=== PATIENT | female | born 2000 | race Caucasian/White ===

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

== ENCOUNTER 2021-05-21 10:04 | Emergency (ER) | payer OTHER, SELFPAY ==
--- OUTSIDE RECORDS SUMMARY | 2021-05-21 10:07 | XMS REPORT | Continuity of Care Document ---
:[address] [facility] t Address [address] [place] [address] Dr. Mendo[address] [place] [address] Care Team Providers Name Role Phone Unavailable Unavailable Unavailable Problems This patient has no known problems. Allergies, Adverse Reactions, Alerts This patient has no known allergies or adverse reactions. Medications This patient has no known medications. Procedures This patient has no known procedures. Results This patient has no known results.
[2021-05-21 11:40] LABS: Absolute Lymphocytes (CBC) 2.2 K/uL (0.7-4.9); Lymphocytes % 23.6 % (15.3-44.8); MPV 8.8 fL (7.6-11.3); RBC Red Blood Cell Count 5.02 M/uL (3.86-4.86)
[2021-05-21 11:55] LABS: Urine Blood Trace-intact (Negative); Urine Glucose Negative (Negative); Urine Protein Negative (Negative); Urine Specific Gravity 1.015 (1.005-1.030); Urine pH 6.5 (5.0-7.0)
[2021-05-21 12:04] LABS: BUN Blood Urea Nitrogen 3 mg/dL (7-18); Bicarbonate 26 mmol/L (21-32); Glucose Level 99 mg/dL (74-106); HCG, Quantitative 6123 mIU/mL (1-3); Potassium 4.2 mmol/L (3.5-5.1); Sodium Level 138 mmol/L (136-145)
[2021-05-21 12:46] LABS: Urine Specific Gravity/Preg 1.015 (1.005-1.030)
--- NOTE | 2021-05-21 13:29 | RAD REPORT ---
EXAM DESCRIPTION: US - Transvaginal OB - 05/21/2021 1:10 pm CLINICAL HISTORY: Abd pain;Vaginal bleeding COMPARISON: No comparisons FINDINGS: Gestational sac identified with mean sac diameter of 10 millimeters. No pole or hear t tones identified. Small volume of pelvic free fluid. Ovaries both demonstrate vascular flow. The ri ght ovary has a volume of 8.6 cc. The left ovary is volume of 8.9 cc. IMPRESSION: Gestational sac identified without pole with ultrasound age of 5 weeks 4 days and estimated delivery of 01/17/2022. Lack of pole/heart tones likely due to early dates. Follow-up ultrasound could confirm.
--- NOTE | 2021-05-21 13:39 | EDPHYS ---
Physician Documentation [facility] Name: Alia Ocasio Age: 21 yrs Sex: Female : 2000 Arrival Date: 05/21/2021 Time: 10:07 Bed Treatment Private MD: ED Physician Kwame Gomez HPI: 05/21 13:22 This 21 yrs old Female presents to ER via Wheelchair with complaints of Vaginal jr8 Bleeding, + Preg <12wks. 13:22 The patient presents to the emergency department with abdominal pain, of the lower jr8 abdomen, that started yesterday, described as crampy, vaginal bleeding, described as spotting. The estimated gestational age is 5 weeks. course: care: at a clinic, Leakage of Fluid: none appreciated, Ultrasound: the patient has not had an ultrasound, Risk/complications: no obvious risks or complications are appreciated. Associated signs and symptoms: The patient has no apparent associated signs or symptoms. The patient has not experienced similar symptoms in the past. The patient has not recently seen a physician. Patient stated that she lifted water bottle case yesterday. Since then has had lower abdominal cramping. Today had spotting. No formal US completed yet. 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 Flu vaccine is not up to date. - Social history:: Smoking status: Patient/guardian denies using tobacco, Stopped _ months ago .5 Smoking status: Reported history of juuling and/or vaping. ROS: 13:22 Eyes: Negative for injury, pain, redness, and discharge, ENT: Negative for injury, jr8 pain, and discharge, Neck: Negative for injury, pain, and swelling, Cardiovascular: Negative for chest pain, palpitations, and edema, Respiratory: Negative for shortness of breath, cough, wheezing, and pleuritic chest pain, Back: Negative for injury and pain, MS/Extremity: Negative for injury and deformity, Skin: Negative for injury, rash, and discoloration, Neuro: Negative for headache, weakness, numbness, tingling, and seizure. 13:22 Abdomen/GI: Positive for abdominal cramps, Negative for nausea, vomiting, and diarrhea. 13:22 : Positive for vaginal bleeding. Exam: 13:22 Constitutional: This is a well developed, well nourished patient who is awake, alert, jr8 and in no acute distress. Cardiovascular: Regular rate and rhythm with a normal S1 and S2. No gallops, murmurs, or rubs. Normal PMI, no JVD. No pulse deficits. Respiratory: Lungs have equal breath sounds bilaterally, clear to auscultation and percussion. No rales, rhonchi or wheezes noted. No increased work of breathing, no retractions or nasal flaring. Abdomen/GI: Soft, non-tender, with normal bowel sounds. No distension or tympany. No guarding or rebound. No evidence of tenderness throughout. Back: No spinal tenderness. No costovertebral tenderness. Full range of motion. Skin: Warm, dry with normal turgor. Normal color with no rashes, no lesions, and no evidence of cellulitis. MS/ Extremity: Pulses equal, no cyanosis. Neurovascular intact. Full, normal range of motion. Neuro: Awake and alert, GCS 15, oriented to person, place, time, and situation. Cranial nerves II-XII grossly intact. Motor strength 5/5 in all extremities. Sensory grossly intact. Vital Signs: 10:32 BP 123 / 85; Pulse 72; Resp 17; Temp 98.1(TE); Pulse Ox 98% on R/A; Weight 91.63 kg; tw2 Height 5 ft. 8 in. (172.72 cm); Pain 6/10; 10:47 BP 131 / 72 LA Sitting (auto/reg); Pulse 64; Resp 14 S; Temp 98.0(O); Pulse Ox 100% on mb4 R/A; 10:32 Body Mass Index 30.71 (91.63 kg, 172.72 cm) tw2 MDM: 10:44 Patient medically screened. jr8 11:16 Data reviewed: vital signs, nurses notes, lab test result(s), radiologic studies, jr8 ultrasound. 13:37 Data interpreted: Pulse oximetry: on room air is 100 %. Interpretation: normal. jr8 Counseling: I had a detailed discussion with the patient and/or guardian regarding: the historical points, exam findings, and any diagnostic results supporting the discharge/admit diagnosis, lab results, radiology results, the need for outpatient follow up, an OB/Gyne specialist, to return to the emergency department if symptoms worsen or persist or if there are any questions or concerns that arise at home. ED course: Discussed with patient early IUP vs threatened miscarry. Needs to have f/u US and HCG. If she were to have worsening of pain or bleeding to come back for further evaluation . 05/21 10:44 Order name: Abo/rh Typing; Complete Time: 12:16 jr8 05/21 10:44 Order name: Basic Metabolic Panel; Complete Time: 12:16 8 05/21 10:44 Order name: CBC with Diff; Complete Time: 11:47 8 05/21 10:44 Order name: Quantitative Hcg; Complete Time: 12:16 8 05/21 11:55 Order name: Urine Dipstick-Ancillary EDPA 05/21 12:15 Order name: Urine --Ancillary (enter results) eb 05/21 10:44 Order name: IV Saline Lock; Complete Time: 11:10 jr8 05/21 10:44 Order name: Labs collected and sent; Complete Time: 11:10 8 05/21 10:44 Order name: NPO; Complete Time: 10:48 8 05/21 10:44 Order name: Urine Dipstick-Ancillary (obtain specimen); Complete Time: 12:13 jr8 05/21 10:44 Order name: Urine Test (obtain specimen); Complete Time: 12:13 8 05/21 11:14 Order name: Labs - recollect needed: recollect T\T\S/ wrong pen used/ smeared label; eb Complete Time: 11:45 05/21 12:16 Order name: Urine --Ancillary; Complete Time: 12:49 EDPA 05/21 12:16 Order name: US Transvaginal Ob; Complete Time: 13:37 jr8 Administered Medications: No medications were administered Disposition Summary: 05/21/21 13:39 Discharge Ordered Location: Home jr8 Problem: new jr8 Symptoms: are unchanged jr8 Condition: Stable jr8 Diagnosis - Threatened jr8 Followup: jr8 - With: Private Physician - When: 2 - 3 days - Reason: Recheck today's complaints, Continuance of care, Re-evaluation by your physician Discharge Instructions: - Discharge Summary Sheet jr8 - Threatened Miscarriage jr8 - Vaginal Bleeding During , First Trimester jr8 Forms: - Medication Reconciliation Form jr8 - Thank You Letter jr8 - Antibiotic Education jr8 - Prescription Opioid Use jr8 Addendum: 05/23/2021 16:21 Co-signature as Attending Physician, Kwame Gomez MD I agree with the assessment and s p3 plan of care. Signatures: Dispatcher [employer] EDIgnacio Hughes PA PA jr8 Mel Morse RN RN tw2 Sandy Vizcaino Setul, MD MD sp3
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
[2021-05-21 14:16] VITALS: BP 131/72; TEMP 98; O2SAT 100
== END 2021-05-21 14:08 | disposition home or self-care (01) ==
LOC: ER 10:04
DX: O20.0 Threatened abortion (principal); Z3A.01 Less than 8 weeks gestation of pregnancy
CPT/HCPCS: 36415; 76817; 80048; 81003; 81025; 84702; 85025; 86900; 86901; 99284

== ENCOUNTER 2021-06-06 12:04 | Emergency (ER) | payer OTHER ==
--- OUTSIDE RECORDS SUMMARY | 2021-06-06 12:06 | XMS REPORT | Continuity of Care Document ---
:2000 Author Organization [facility] t Address [address] [place] [address] Care Team Providers Name Role Phone Pcp, Does Not Have A Primary Care Physician Delmis Dial Attending Clinician Payers Payer Name Policy Type Policy Number Effective Date Expiration Date S ource Problems Condition Condition Condition Status Onset Resolution Last Treating Co mments Source Name Details Category Date Date Treatment Clinician Date Supervisio Supervisio Disease Active U nivers n of high n of high 1-12 ity of risk risk 00:00: [place] , , 00 Me dical antepartum antepartum Br anch Primigravi Primigravi Disease Active 0 U nivers da in da in 1-12 ity of first first 00:00: [place] trimester trimester 00 [facility] Branch Vaginal Vaginal Disease Active Univers bleeding bleeding 1-12 [place] of affecting [place] early 00 [place] Bran [place] History of History of Disease Active 2021-0 U nivers Crohn's Crohn's 1-12 ity of disease disease 00:00: [address] Obesity in Obesity in Disease Active 2021-0 U nivers 1-12 ity of 00:00: [address] BMI BMI Disease Active 2021- Univers 30.0-30.9, 30.0-30.9, 1-12 it y of adult adult 00:00: [place] [address] [facility] Yeast Yeast Disease Active Univers infection infection 12 ity of of the of the 00:00: [place] vagina vagina [address] [facility] Allergies, Adverse Reactions, Alerts This patient has no known allergies or adverse reactions. Social History Social Habit Start Date Stop Date Quantity Comments Source ASSERTION 2021-04-25 University of 00:00:00 [facility] Exposure to Not sure University of SARS-CoV-2 [facility] (event) [place] Tobacco use and 2021-05-26 2021-05-26 Never used Universit y of exposure 00:00:00 00:00:00 [facility] Alcohol intake 2021-05-26 2021-05-26 Lifetime University of 00:00:00 00:00:00 non-drinker [facility] (finding) [place] History of 2021-05-15 Smoker University of tobacco use 00:00:00 [facility] Sex Assigned At [birth year] Universit y of 00:00:00 00:00:00 [facility] Smoking Status Start Date Stop Date Source Former smoker 2021-05-26 00:00:00 2021-05-26 00:00:00 Universi ty of [facility] Medications Ordered Filled Start Stop Current Ordering Indication Dosage Frequency Signature Comments Components Source Medication Medication Date Date Medication? Clinician (SIG) Name Name Yes [id number] 1{packe Take 1 Univers vit 1-12 t} Packet by ity of 33-iron-fol 00:00: mouth [place] ic-dha 00 daily. Medical (SELECT-OB Branch + DHA) 29 mg iron-1 mg -250 mg combo pack terconazole Yes [id number] 1{appli Insert 1 Univers 0.8 % 05-26 cator} Applicator ity of vaginal 00:00: into [place] cream 00 vagina at Medical bedtime. Branch Yes [id number] 1{packe Take 1 Univers vit 1-12 t} Packet by ity of 33-iron-fol 00:00: mouth [place] ic-dha 00 daily. Medical (SELECT-OB Branch + DHA) 29 mg iron-1 mg -250 mg combo pack terconazole Yes [id number] 1{appli Insert 1 Univers 0.8 % 1-12 cator} Applicator ity of vaginal 00:00: into [place] cream 00 vagina at Medical bedtime. Branch acetaminoph 2015-05 No 1{tbl} Take 1 U nivers en-codeine 0-15 05-26 tablet by ity of (TYLENOL 00:00: 00:00 mouth [place] #3) 300-30 00 :00 every 4 Medica l mg tablet (four) Branch hours as needed for Pain (scale 1-3). amoxicillin 2015-05 No 500mg Take 1 Un jos -pot 0-15 05-26 tablet by ity of clavulanate 00:00[place] 00:[place] 500 mg 00 :00 (three) Medical (AUGMENTIN) times Branch 500-125 mg daily. tablet Vital Signs Vital Name Observation Time Observation Value Comments Source Systolic blood 2021-05-26 20:42:00 124 mm[Hg] Univer sity of pressure [facility] Diastolic blood 2021-05-26 20:42:00 68 mm[Hg] [facility] Heart rate 2021-05-26 20:42:00 79 /min [facility] Body temperature 2021-05-26 20:42:00 36.06 Cindy [facility] Respiratory rate 2021-05-26 20:42:00 16 /min [facility] Body height 2021-05-26 20:42:00 172.7 cm [facility] Body weight 2021-05-26 20:42:00 91.218 kg [facility] BMI 2021-05-26 20:42:00 30.58 kg/m2 [facility] Procedures Procedure Date / Time Performed Performing Clinician Sour e POCT TEST 2021-05-26 20:45:00 Curly Laughlin [facility] POCT URINALYSIS W/O 2021-05-26 20:45:00 Curly Laughlin [facility] Encounters Start End Encounter Admission Attending Care Care Encounter Source Date/Time Date/Time Type Type Clinicians Facility Department ID 2021-05-272021-05-27 Abstract NOEL Laughlin [id number] Univers 00:00:00 00:00:00 Roshunda R 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 CASEWORKER [id number] ity of REGIONAL [id number] Bo as MATERNAL [id number] [facility] ical & CHILD [address] [place] [address] 2021-05-26 2021-05-26 Initial NOEL Laughlin [id number] Univers 14:00:00 15:28:47 Roshunda R 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 CASEWORKER [id number] ity of Visit REGIONAL [id number] Bo as MATERNAL [phone] [facility] & [address] Results Test Description Test Time Test Comments Results Result Comments Source POCT TEST 2021-05-26 20:45:00 Test Item Value Reference Range Interpretation Comme nts POCT PREG (test code = 1605) Positive On board controls acceptable with C Line (test code = 3574) Yes POCT PREG LOT # (test code = 3575) POCT [facility]REG TEST DATE (test code = 3576[facility] SPECIFIC [id number] 20:45:00 Test Item Value Reference Range Interpretation Comments POCT PH U (test code = 3254) 7 mg/dl 5-8 POCT U LEUK EST (test code = 2+ Negative - Negative 3263) POCT U NIT (test code = 3262) Neg Negative - Negative POCT U PROT (test code = 3259) Trace Negative - Negative POCT U GLU (test code = 3256) Neg Negative - Negative POCT U KETONE (test code = 3258) 2+ Negative - Negative POCT U BLD (test code = 3257) Large Negative - Negative [facility]
--- NOTE | 2021-06-06 13:48 | RAD REPORT ---
EXAM DESCRIPTION: US - Transvaginal OB - 06/06/2021 1:33 pm CLINICAL HISTORY: vaginal bleeding, eval for COMPARISON: Transvaginal OB dated 05/21/2021 FINDINGS: Single IUP identified. The crown-rump length measures 1.3 cm which is consistent with 7 we ek 4 day. heart tones are present. The uterus measures 8.8 cm. The right ovary is volume of 4.7 cc. The left ovary was not visualized. T race free fluid. Vascular flow is present within the right ovary . IMPRESSION: Single viable IUP with positive heart tones measuring 7 week 4 day by crown-rump l ength and estimated delivery of 01/19/2022.
[2021-06-06 14:01] LABS: Absolute Lymphocytes (CBC) 1.3 K/uL (0.7-4.9); Hematocrit 43.2 % (36.0-45.0); Lymphocytes % 18.9 % (15.3-44.8); MPV 8.4 fL (7.6-11.3); RBC Red Blood Cell Count 5.05 M/uL (3.86-4.86)
--- NOTE | 2021-06-06 14:08 | EDPHYS ---
Physician Documentation [facility] Name: Alia Ocasio Age: 21 yrs Sex: Female : 2000 Arrival Date: 06/06/2021 Time: 12:07 Bed 19 Private MD: ED Physician Rene Javier HPI: 06/06 13:14 This 21 yrs old Female presents to ER via Ambulatory with complaints of Abdominal rn Cramping, spotting. 13:14 The patient presents to the emergency department with vaginal bleeding, described as rn spotting. The estimated gestational age is 8 weeks. course: care: none, Leakage of Fluid: none appreciated, Ultrasound: the patient had an ultrasound. Previous pregnancies: the patient has never been . Associated signs and symptoms: Pertinent positives: abdominal pain, vaginal bleeding, Pertinent negatives: fever, frequency. The patient has experienced a previous episode. The patient has been recently seen at the [facility] Emergency Department. Patient reports approximately 8 weeks . . Reports seen here 2 weeks ago and ultrasound just showed a sac but no embryo. States continues to spot, has not gotten worse, associated with suprapubic cramping. Has not been able to follow-up with an OB yet so came here.. 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 - Social history:: Smoking status: Patient denies any tobacco usage or history of. - Family history:: not pertinent. - Hospitalizations: : No recent hospitalization is reported. ROS: 13:14 Constitutional: Negative for fever, chills, and weight loss, Eyes: Negative for injury, rn pain, redness, and discharge, Cardiovascular: Negative for chest pain, palpitations, and edema, Respiratory: Negative for shortness of breath, cough, wheezing, and pleuritic chest pain, Abdomen/GI: Negative for diarrhea, and constipation, Back: Negative for injury and pain, : Negative for injury, discharge, and swelling, MS/Extremity: Negative for injury and deformity, Skin: Negative for injury, rash, and discoloration, Neuro: Negative for headache, weakness, numbness, tingling, and seizure. Exam: 13:14 Constitutional: This is a well developed, well nourished patient who is awake, alert, rn and in no acute distress. Head/Face: Normocephalic, atraumatic. Eyes: Periorbital areas with no swelling, redness, or edema. Cardiovascular: Regular rate and rhythm. No pulse deficits. Respiratory: No increased work of breathing, no retractions or nasal flaring. Abdomen/GI: Soft, non-tender Skin: Warm, dry MS/ Extremity: Pulses equal, no cyanosis. Neuro: Awake and alert, GCS 15 Vital Signs: 12:11 BP 130 / 88; Pulse 99; Resp 18; Temp 97.9(O); Pulse Ox 100% ; Weight 90.72 kg; Height 5 butts ft. 8 in. (172.72 cm); 12:29 BP 117 / 65 RA Sitting (auto/reg); Pulse 66; Resp 18 S; Pulse Ox 100% on R/A; mb4 14:17 BP 121 / 71; Pulse 69; Resp 17; Temp 97.9; Pulse Ox 99% ; bp 12:11 Body Mass Index 30.41 (90.72 kg, 172.72 cm) butts MDM: 12:28 Patient medically screened. rn 14:05 Differential diagnosis: threatened Ab. Data reviewed: vital signs, nurses notes, rn radiologic studies, ultrasound, and as a result, I will discharge patient. Counseling: I had a detailed discussion with the patient and/or guardian regarding: the historical points, exam findings, and any diagnostic results supporting the discharge/admit diagnosis, radiology results, the need for outpatient follow up, to return to the emergency department if symptoms worsen or persist or if there are any questions or concerns that arise at home. Response to treatment: the patient's symptoms have mildly improved after treatment, and as a result, I will discharge patient. Special discussion: I discussed with the patient/guardian in detail that at this point there is no indication for admission to the hospital. It is understood, however, that if the symptoms persist or worsen the patient needs to return immediately for re-evaluation. Based on the history and exam findings, there is no indication for further emergent testing or inpatient evaluation. I discussed with the patient/guardian the need to see the OB Gyne specialist for further evaluation of the symptoms. ED course: Ultrasound today shows single intrauterine viable with heart tones. Blood type was O+ last visit no need to repeat. Stable vitals and no new complaints. Will discharge home with OB follow-up. 06/06 12:33 Order name: Basic Metabolic Panel rn 06/06 12:33 Order name: CBC with Diff rn 06/06 12:33 Order name: Quantitative Hcg rn 06/06 12:33 Order name: IV Saline Lock; Complete Time: 13:52 rn 06/06 12:33 Order name: US Transvaginal Ob; Complete Time: 14:00 rn 06/06 12:33 Order name: Labs collected and sent; Complete Time: 13:52 rn 06/06 12:33 Order name: NPO; Complete Time: 13:52 rn Administered Medications: No medications were administered Disposition Summary: 06/06/21 14:07 Discharge Ordered Location: Home rn Problem: an ongoing problem rn Symptoms: have improved rn Condition: Stable rn Diagnosis - Threatened rn Followup: rn - With: Private Physician - When: As needed - Reason: Recheck today's complaints, Re-evaluation by your physician Discharge Instructions: - Discharge Summary Sheet rn - Threatened Miscarriage rn - Vaginal Bleeding During , First Trimester rn Forms: - Medication Reconciliation Form rn - Thank You Letter rn - Antibiotic 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 rn bp
--- NOTE | 2021-06-06 14:08 | ER ---
Nurse's Notes [facility] Name: Alia Ocasio Age: 21 yrs Sex: Female : 2000 Arrival Date: 06/06/2021 Time: 12:07 Bed 19 Private MD: Diagnosis: Threatened Presentation: 06/06 12:11 Chief complaint: Patient states: pt presented to ed reporting spotting and abdominal butts pain. pt is about 8 weeks . pt was seen at the ED about 2 weeks ago and was advised to f/u with ultra sound. Coronavirus screen: Vaccine status: Patient reports being unvaccinated. Ebola Screen: Patient denies travel to an Ebola-affected area in the 21 days before illness onset. Initial Sepsis Screen: Does the patient meet any 2 criteria? HR > 90 bpm. Does the patient have a suspected source of infection? No. Patient's initial sepsis screen is negative. Risk Assessment: Do you want to hurt yourself or someone else? Patient reports no desire to harm self or others. Onset of symptoms was June 06, 2021. 12:11 Method Of Arrival: Ambulatory butts 12:11 Acuity: LAUREN 3 butts Triage Assessment: 12:30 General: Appears in no apparent distress. comfortable, Behavior is calm, cooperative, bp appropriate for age. Pain: Complains of pain in abdomen. EENT: No deficits noted. Neuro: No deficits noted. Cardiovascular: No deficits noted. Respiratory: No deficits noted. GI: Reports lower abdominal pain. : Reports vaginal bleeding that is spotty. Derm: No deficits noted. Musculoskeletal: No deficits noted. 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 - Social history:: Smoking status: Patient denies any tobacco usage or history of. - Family history:: not pertinent. - Hospitalizations: : No recent hospitalization is reported. Screenin:18 Abuse screen: Denies threats or abuse. Denies injuries from another. Nutritional bp screening: No deficits noted. Tuberculosis screening: No symptoms or risk factors identified. Fall Risk None identified. Assessment: 12:30 General: SEE TRIAGE NOTE. bp 14:18 Reassessment: PT D/C HOME AMBULATORY WITH FAMILY, DX WITH THREATENED MISCARRIAGE. bp Vital Signs: 12:11 BP 130 / 88; Pulse 99; Resp 18; Temp 97.9(O); Pulse Ox 100% ; Weight 90.72 kg; Height 5 butts ft. 8 in. (172.72 cm); 12:29 BP 117 / 65 RA Sitting (auto/reg); Pulse 66; Resp 18 S; Pulse Ox 100% on R/A; mb4 14:17 BP 121 / 71; Pulse 69; Resp 17; Temp 97.9; Pulse Ox 99% ; bp 12:11 Body Mass Index 30.41 (90.72 kg, 172.72 cm) butts ED Course: 12:07 Patient arrived in ED. am2 12:13 Triage completed. butts 12:13 Arm band placed on right wrist. butts 12:22 Patient has correct armband on for positive identification. Bed in low position. Call mb4 light in reach. Adult w/ patient. Pulse ox on. NIBP on. 12:23 Simon Anglin, RN is Primary Nurse. bp 12:28 Rene Javier MD is Attending Physician. rn 13:33 US Transvaginal Ob In Process Unspecified. EDMS 13:52 Inserted saline lock: 22 gauge in right antecubital area, using aseptic technique. bp Blood collected. 14:18 No provider procedures requiring assistance completed. IV discontinued, intact, bp bleeding controlled, No redness/swelling at site. Pressure dressing applied. Administered Medications: No medications were administered Outcome: 14:07 Discharge ordered by . rn 14:18 Discharged to home ambulatory. bp 14:18 Condition: stable 14:18 Discharge instructions given to patient, Instructed on discharge instructions, follow up and referral plans. Demonstrated understanding of instructions, follow-up care. 14:19 Patient left the ED. bp Signatures: Dispatcher [employer] EDMS Rene Javier MD MD rn Moreno, Amanda am2 Simon Anglin, RN CAROLINA bp Odette Rose mb4 Au-StagerAraceli RN RN butts
[2021-06-06 14:40] LABS: BUN Blood Urea Nitrogen 5 mg/dL (7-18); Bicarbonate 25 mmol/L (21-32); Glucose Level 85 mg/dL (74-106); HCG, Quantitative 82585 mIU/mL (1-3); Potassium 3.6 mmol/L (3.5-5.1); Sodium Level 136 mmol/L (136-145)
[2021-06-06 17:56] VITALS: TEMP 97.9
[2021-06-06 17:58] VITALS: BP 121/71; O2SAT 99
== END 2021-06-06 14:19 | disposition home or self-care (01) ==
LOC: ER 12:04
DX: O20.0 Threatened abortion (principal)
CPT/HCPCS: 36415; 76817; 80048; 84702; 85025; 99284

== ENCOUNTER 2021-08-15 21:31 | Emergency (ER) | payer OTHER ==
--- OUTSIDE RECORDS SUMMARY | 2021-08-15 21:34 | XMS REPORT | Continuity of Care Document ---
:2000 Author Organization [facility] t Address [address] [place] [address] Care Team Providers Name Role Phone Srinivasa SAMPSON Primary Care Physician Unavailable Delmis Dial Attending Clinician Payers Payer Name Policy Type Policy Number Effective Date Expiration Date S ource Problems Condition Condition Condition Status Onset Resolution Last Treating Co mments Source Name Details Category Date Date Treatment Clinician Date Nausea and Nausea and Disease Active 2021-0 U nivers vomiting vomiting 3-15 ity of in in 00:00: [place] 00 [facility] prior to prior to Branch 22 weeks 22 weeks gestation gestation Urinary Urinary Disease Active 2021- Univers tract tract 3-15 [place] without 00 [place] hematuria, hematuria, Br anch site site unspecifie unspecifie d d History of History of Disease Active 2021-0 U nivers IBS IBS 1-12 ity of 00:00: [place] 00 Medical Branch Supervisio Supervisio Disease Active 2021-0 U nivers n of high n of high 1-12 ity of risk risk 00:00: [place] , , 00 Me dical antepartum antepartum Br anch Primigravi Primigravi Disease Active 2021-0 U nivers da in da in 1-12 ity of first first 00:00: [place] trimester trimester 00 Medi artie Branch Vaginal Vaginal Disease Active Univers bleeding bleeding 1-12 ity of affecting affecting 00:00: [place] erazo early early 00 Medical Bran ch Obesity in Obesity in Disease Active U nivers 1-12 ity of 00:00: [address] BMI BMI Disease Active Univers 30.0-30.9, 30.0-30.9, 1-12 it y of adult adult 00:00: [address] Yeast Yeast Disease Active Univers infection infection 1-12 ity of of the of the 00:00: [place] vagina vagina 00 [facility] Allergies, Adverse Reactions, Alerts Allergy Allergy Status Severity Reaction(s) Onset Inactive Treating Comm ents Source Name Type Date Date Clinician NO KNOWN Drug Active Univers ALLERGIE Class ity of S [facility] Social History Social Habit Start Date Stop Date Quantity Comments Source ASSERTION 2021-04-25 University of 00:00:00 [facility] Exposure to Not sure [facility] SARS-CoV-2 [facility] (event) [place] Alcohol intake 2021-07-27 2021-07-27 Lifetime University of 00:00:00 00:00:00 non-drinker [facility] (finding) [place] Tobacco use and 2021-05-26 2021-05-26 Never used Universit y of exposure 00:00:00 00:00:00 [facility] History of 2021-05-15 Smoker University of tobacco use 00:00:00 [facility] Sex Assigned At [birth year] Universit y of 00:00:00 00:00:00 [facility] Smoking Status Start Date Stop Date Source Former smoker 2021-05-26 00:00:00 2021-05-26 00:00:00 Universi ty of [facility] Medications Ordered Filled Start Stop Current Ordering Indication Dosage Frequency Signature Comments Components Source Medication Medication Date Date Medication? Clinician (SIG) Name Name proMETHazin Yes [id number] 25mg Take 1 Univers e 25 mg 3-15 tablet by ity of tablet 00:00: mouth [place] 00 every 4 Medical (four) Branch hours as needed for Nausea and Vomiting (N/V). amoxicillin Yes [id number] 500mg Take 1 Univers 500 mg 3-04 4 capsule by ity of capsule 00:00: mouth 3 [place] 00 (three) Medical times Branch daily. Yes [id number] 1{packe Take 1 Univers vit 1-12 t} Packet by ity of 33-iron-fol 00:00: mouth [place] ic-dha 00 daily. Medical (SELECT-OB Branch + DHA) 29 mg iron-1 mg -250 mg combo pack terconazole Yes [id number] 1{appli Insert 1 Univers 0.8 % 1-12 cator} Applicator ity of vaginal 00:00: into [place] cream 00 vagina at Medical bedtime. Branch Vital Signs Vital Name Observation Time Observation Value Comments Source Systolic blood 2021-07-27 18:44:00 136 mm[Hg] [facility] Diastolic blood 2021-07-27 18:44:00 74 [facility]Hg[facility] rate 2021-07-27 18:44:00 82 /min [facility] Body temperature 2021-07-27 18:44:00 36.44 Cindy [facility] Respiratory rate 2021-07-27 18:44:00 16 /min [facility] Body height 2021-07-27 18:44:00 170.2 cm [facility] Body weight 2021-07-27 18:44:00 87.816 kg [facility] BMI 2021-07-27 18:44:00 30.32 kg/m2 [facility] Procedures Procedure Date / Time Performed Performing Clinician Sourc e POCT URINALYSIS 2021-07-27 18:45:00 Curly Laughlin [facility] Encounters Start End Encounter Admission Attending Care Care Encounter Source Date/Time Date/Time Type Type Clinicians Facility Department ID 2021-09-01 2021-09-01 Outpatient [address] [facility] [id number] Univers 08:00:00 08:00:00 [id number] ity [facility] 2021-07-27 2021-07-27 Routine NOEL Laughlin [id number] Univers 13:30:00 14:08:12 Curly Benites ADVENTURE THERAPIST [id number] ity of Visit [place] [id number] Bo as MATERNAL [id number] [facility] ical & CHILD [address] [place] [address] Results Test Description Test Time Test Comments Results Result Comments Source POCT URINALYSIS W SPECIFIC GRAVITY 2021-07-27 18:46:00 Test Item Value Reference Range Interpretation Comme nts POCT U SP GRAV (test code = 3255) . 1.005-1.025 POCT PH U (test code = 3254) 7 mg/dl 5-8 POCT U LEUK EST (test code = 3263) 2+ Negative - Negative POCT U NIT (test code = 3262) pos Negative - Negative POCT U PROT (test code = 3259) 1+ Negative - Negative POCT U GLU (test code = 3256) neg Negative - Negative POCT U KETONE (test code = 3258) neg Negative - Negative POCT U UROBILI (test code = 3260) . 0.2-1 POCT U BILI (test code = 3261) . Negative - Negative POCT U BLD (test code = 3257) small Negative - Negative POCT U COLOR (test code = 3266) POCT U APPEAR (test code = 3267) [facility] METABOLITE, QUANT, [id number] 13:53:13 Test Item Value Reference Range Interpretation Comments CARBOXY-THC Positive A INTERP (test code = 02558) CARBOXY-THC >500 ng/mL <15 H Reference rang e indicates QNT (test cutoff for posi tive result code = 42901) determination. Specimen Type: Urine Urine keyonna g and metabolite concentrations are dependent on manyfactors, in cluding patient compliance, keyonna g dosing, dosing interval,indivi dual variation in drug absorpt ion and metabolism, uri neconcentration, and limitations of testing. Assay is intend ed formedical purposes only, not for forensic use. This test was developed and its perform ance characteristics determined by [facility] ([facility]). It has n ot beencleared or approved by the U.S. Food and Drug Admini stration (FDA).The FDA h as determined that such clear ance or approval is notnecessary . This test is used for clinic al purposes and should not molly garded as investigational or for research. [facility] i s qualified toperform high complexity testing under t he Clinical LaboratoryImpro vement Amendments (CLI A). TESTING PERFORM ED AT [facility]. [address] [facility], [address], [address] [address] CLIA NO: [id number] UNLESS OTHER DINH INDICATED, ALL TESTING PER FORMED ATCLINICAL PATH [facility], [place]. [address] [place] [address] LABORATORY DIRE CTOR: PARISH GARDINER M.D. CLIA NUMBER [id number] CAP ACCREDITATION N O. [id number] CULTURE, [id number] 09:46:33SPECIMEN NUMBER: [id number] CULTURE, URINE SPECIMEN NUMBER: [id number] SPECIMEN COMMENT: URINE SOURCE: URINE REPORT STATUS: FINAL FINAL REPORT: 05/22/2021 10- 50,000 CFU/ML UROGENITAL MIGEL PRESENT NO COMMON PATHOGENSCT/NG, NAAT, [id number] 18:46:38 Test Item Value Reference Range Interpretation Comments GONORRHEA, NAAT NEGATIVE NEGATIVE IMPORTANT (test code = NOTICE: [place] [address]) [email or web address] Note: Assay methodology is nucleic acid amplification b y machinist supervisor outside mediated amplification ( TMA) utilizing the A ptima Combo 2 Assay. CHLAMYDIA, NAAT NEGATIVE NEGATIVE IMPORTANT (test code = NOTICE: [place] [address]) [email or web address] Note: Assay methodology is nucleic acid amplification b y machinist supervisor outside mediated amplification ( TMA) utilizing the A ptima Combo 2 Assay. VARICELLA ZOSTER [id number] 16:32:46 Test Item Value Reference Range Interpretation Comments VARICELLA ZOSTER IgG 583 INDEX SEE BELOW INTERPRETATION (test code = 75592) VZV IgG N EGATIVE . . . . . . . . . . . . INDEX <135 EQUIVOCAL. . . . . . . . . . . . I NDEX 135-164 NOTE: CONSIDER RETEST ING IN A CLINICALLY SUIT ABLE MARIAM OD OF TIME, NO SOONER THAN 1-2 WEEKS. POSITIVE . . . . . . . . . . . . INDEX >=165 GLUCOSE, 1 HR, GESTATIONAL SCREEN, 50 GM [id number] 08:06:16 Test Item Value Reference Range Interpretation Comments GLUCOSE 1 HR POST 50 GM (test code = 76 MG/DL <140 2005) DRUG ABUSE SCREEN 10 REFLEX [id number] 07:54:28 Test Item Value Reference Interpretation Comments Range AMPHETAMINES (test NEGATIVE NEGATIVE code = 3201) BARBITURATES (test NEGATIVE NEGATIVE code = 3202) BENZODIAZEPINES NEGATIVE NEGATIVE (test code = 3203) CANNABINOIDS (test SEE REFLEX NEGATIVE A code = 3204) TESTING COCAINE METABOLITE NEGATIVE NEGATIVE (test code = 3205) OPIATES (test code = NEGATIVE NEGATIVE 3209) OXYCODONE (test code NEGATIVE NEGATIVE = 85178) PHENCYCLIDINE (test NEGATIVE NEGATIVE code = 3210) METHADONE (test code NEGATIVE NEGATIVE = 3207) BUPRENORPHINE (test NEGATIVE NEGATIVE code = 68380) SOURCE (test code = URINE * SEE BELOW FOR 540239) THRESHOLDS AND IMPORTANT METHOD NOTES * ANALYTE SCREENING CUTOF F CONFIRMATORY CUTOFF ___AMPHETAMINES 500 NG/M L 100 NG/MLBARBITURAT ES 200 NG /ML 100 NG/MLBENZODIAZE PINES 200 NG /ML 100 NG/MLCANNABINOI DS (THC) 20 NG /ML 15 NG/MLCOCAINE ME TABOLITES 150 NG /ML 100 NG /MLOPIATE METABOLITES 300 NG/ML 100 NG/MLOXYCOD ONE 10 0 NG/ML 10 0 NG/MLPHENCYCLID INE (PCP) 25 NG /ML 25 NG/MLMETHADONE 300 NG /ML 100 NG/MLBUPRENORPH INE 5 NG /ML 5 NG /ML NOTE: Screening metho dology is qualitative Enz yme Immunoassay.The screening metho d may be less sensitive for certain medicationsincl uding clonazepam and lorazepam in the benzodia zepine assay andtramad ol or fentanyl in the opiate assay, amongst others. Patientcomplian ce, hydration statu s, timing and dose of med ications, drugabsorption and specimen qualit y may affect screenin g assay.For clini artie discrepancies, consider directed testin g for specificcompoun ds or contact the lab oratory within specimen stability tofor león for confirmatory te sting. This test is sp ecified for medicalpurp oses only. It is no t valid for forensic us e. HEPATITIS C REFLEX [id number] 03:24:29 Test Item Value Reference Range Interpretation Comments HEPATITIS C ANTIBODY (test code NON-REACTIVE NON-REACTIVE = 4675) OBSTETRIC PANEL + [id number] 03:24:29 Test Item Value Reference Range Interpretation Comments WBC (test code = 12.0 K/UL 3.5-11.0 H 1001) RBC (test code = 4.94 M/UL 3.80-5.40 1002) HEMOGLOBIN (test 13.9 G/DL 11.5-15.5 code = 1003) HEMATOCRIT (test 42.4 % 34.0-45.0 code = 1004) MCV (test code = 85.8 fL 80.0-99.0 1005) MCH (test code = 28.1 PG 25.0-33.0 1006) MCHC (test code = 32.8 G/DL 31.0-36.0 1007) RDW (test code = 12.8 % 11.5-15.0 1038) NEUTROPHILS (test 63.3 % code = 1008) LYMPHOCYTES (test 28.7 % code = 1010) MONOCYTES (test 6.6 % code = 1011) EOSINOPHILS (test 0.6 % code = 1012) BASOPHILS (test 0.5 % code = 1013) IMMATURE 0.3 % GRANYLOCYTES (test code = 1036) NUCLEATED RBCS 0.0 /100 WBC'S See_Comment [Automate d message] (test code = 1065) The syste m which generated this result transmit morelia reference range : 0.0. The refere nce range was not u sed to interpret th is result as normal/abnormal . PLATELET COUNT 324 K/UL 130-400 (test code = 1015) ABSOLUTE 7.58 K/UL 1.50-7.50 H NEUTROPHILS (test code = 1066) ABSOLUTE 3.44 K/UL 1.00-4.00 LYMPHOCYTES (test code = 1067) ABSOLUTE MONOCYTES 0.79 K/UL 0.20-1.00 (test code = 1068) ABSOLUTE 0.07 K/UL 0.00-0.50 EOSINOPHILS (test code = 1040) ABSOLUTE BASOPHILS 0.06 K/UL 0.00-0.20 (test code = 1069) ABS IMMATURE 0.03 K/UL 0.00-0.10 GRANULOCYTES (test code = 1020) ABS NUCLEATED RBCS 0.00 K/UL 0.00-0.11 (test code = 34272) BLOOD TYPE AND RH O POSITIVE A HISTORI ARTIE RECORD (test code = 3901) CHECK FOR PREVIOUS RESULTS IS NOT PERFORMED.THESE RESULTS SHOULD BE CORRELATED WITH RESULTS OF PRIO R BLOODTYPING AND ANTIBODY SCREEN STUDIES. ANTIBODY SCREEN NEGATIVE NEGATIVE A HISTORICA L RECORD (test code = 3902) CHECK FOR PREVIOUS RESULTS IS NOT PERFORMED.THESE RESULTS SHOULD BE CORRELATED WITH RESULTS OF PRIO R BLOODTYPING AND ANTIBODY SCREEN STUDIES. RUBELLA ANTIBODY 166 IU/ML SEE BELOW SCREEN (test code = INTERPRE TATION 4600) RUBELLA IgG NON-REACTIVE/NO N-IMM UNE . . . . . . . IU/ML < 10 REACTIVE/IM MUNE . . . . . . . . . . . IU/ML >=10 RUBELLA IgG INTERP REACTIVE REACTIVE (test code = 97734) HEPATITIS B SURF AG NON-REACTIVE NON-REACTIVE (test code = 2739) RPR (test code = NON-REACTIVE NON-REACTIVE 04951) RPR TITER (test NOT INDIC. NOT INDIC. code = 3500) TITER HIV 1/2 4TH GEN, NON-REACTIVE NON-REACTIVE RFLX CONF (test code = 3514) HEPATITIS PANEL, [id number] 03:24:29 Test Item Value Reference Range Interpretation Comments HEPATITIS A IgM (test NON-REACTIVE NON-REACTIVE code = 78251) HEPATITIS B CORE IgM NON-REACTIVE NON-REACTIVE (test code = 4644) HEPATITIS B SURF AG NON-REACTIVE NON-REACTIVE (test code = 2739) HEPATITIS C ANTIBODY NON-REACTIVE NON-REACTIVE (test code = 4675) INTERPRETATION (NOTE) Hepatiti s A HEPATITIS A: (test code sero logy shows no = 8192) evidence of acu te hepatitis A. INTERPRETATION (NOTE) Hepatiti s B HEPATITIS B: (test code sero logy shows no = 04968) evidence of acu te hepatitis B and no indication of exposure to hepatitis B vir us in the previous goldy eight months. INTERPRETATION (NOTE) Hepatiti s C HEPATITIS C: (test code sero logy shows no = 48921) evidence of exposure to hepatitisC viru s at this time. It can take up to 12 months after exposure tothe hepatitis C vir us for antibodies to become detectab le in the bloo d in certain patients. [id number] 02:50:09 Test Item Value Reference Range Interpretation Comments RPR RESULT (test code = NON-REACTIVE NON-REACTIVE 3501) RPR TITER (test code = 3500) NOT INDIC. TITER NOT INDIC.
[2021-08-15 23:18] LABS: Urine Blood 1+ (Negative); Urine Glucose Negative (Negative); Urine Protein Negative (Negative); Urine pH 6.5 (5.0-7.0)
[2021-08-15 23:26] LABS: Absolute Lymphocytes (CBC) 2.4 K/uL (0.7-4.9); Lymphocytes % 17.7 % (15.3-44.8); MPV 8.2 fL (7.6-11.3); RBC Red Blood Cell Count 4.35 M/uL (3.86-4.86)
[2021-08-16 00:02] LABS: BUN Blood Urea Nitrogen 4 mg/dL (7-18); Bicarbonate 23 mmol/L (21-32); Glucose Level 90 mg/dL (74-106); HCG, Quantitative 9905 mIU/mL (1-3); Potassium 3.4 mmol/L (3.5-5.1); Sodium Level 138 mmol/L (136-145)
[2021-08-16] MEDS ORDERED: CEPHALEXIN 250 MG CAP ONE (00:40)
--- NOTE | 2021-08-16 01:31 | RAD REPORT ---
EXAM DESCRIPTION: US - OB Limited - 08/15/2021 11:38 pm CLINICAL HISTORY: VAGINAL BLEEDING Pelvic pain COMPARISON: Transvaginal OB dated 06/06/2021 FINDINGS: A limited examination was performed. A single cephalic presenting gestation is identified. Heart rate normal measuring 153 BPM. Placenta a ppears posterior. Subjectively amniotic fluid volume is normal. Left ovary is normal in size with nor mal blood flow. Right ovary obscured by bowel gas.
[2021-08-16 02:10] LABS: Calcium Oxalate Crystals- Ur FEW (NONE SEEN); Urine Bacteria <20 /HPF (<20); Urine RBC <5 /HPF (NONE SEEN)
--- NOTE | 2021-08-16 02:23 | ER ---
Nurse's Notes [facility] Name: Alia Ocasio Age: 21 yrs Sex: Female : 2000 Arrival Date: 08/15/2021 Time: 21:41 Bed 28 Private MD: Diagnosis: Threatened ;UTI/ Urinary tract infection, site not specified;18 weeks gestation of Presentation: 08/15 22:09 Chief complaint: Patient states: vaginal bleeding starting around 2030 in the shower. lg3 pt unaware if currently still bleeding. 18 weeks . lower abdominal and lower back pressure reported. Coronavirus screen: Client denies travel out of the [place] in the last 14 days. At this time, the client does not indicate any symptoms associated with coronavirus-19. Ebola Screen: No symptoms or risks identified at this time. Initial Sepsis Screen: Does the patient meet any 2 criteria? No. Patient's initial sepsis screen is negative. Does the patient have a suspected source of infection? No. Patient's initial sepsis screen is negative. Risk Assessment: Do you want to hurt yourself or someone else? Patient reports no desire to harm self or others. Onset of symptoms was August 15, 2021. 22:09 Method Of Arrival: Ambulatory lg3 22:09 Acuity: LAUREN 3 lg3 Triage Assessment: 22:11 General: Appears in no apparent distress. comfortable, Behavior is calm, cooperative. lg3 Pain: Denies pain. EENT: No deficits noted. No signs and/or symptoms were reported regarding the EENT system. Neuro: No deficits noted. Level of Consciousness is awake, alert, obeys commands, Oriented to person, place, time, situation. Cardiovascular: No deficits noted. Denies chest pain, shortness of breath. Respiratory: No deficits noted. Airway is patent Trachea midline Respiratory effort is even, unlabored, Respiratory pattern is regular, symmetrical. GI: No deficits noted. Abdomen is round non-distended, Reports pressure in lower abdomen and lower back. : No deficits noted. No signs and/or symptoms were reported regarding the genitourinary system. Derm: No deficits noted. No signs and/or symptoms reported regarding the dermatologic system. Skin is intact, is healthy with good turgor, Skin is dry. Musculoskeletal: No deficits noted. No signs and/or symptoms reported regarding the musculoskeletal system. 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 - Social history:: Smoking status: Patient denies any tobacco usage or history of. Patient/guardian denies using alcohol, street drugs. Screenin:14 Abuse screen: Denies threats or abuse. Denies injuries from another. Nutritional lg3 screening: No deficits noted. Tuberculosis screening: No symptoms or risk factors identified. Fall Risk None identified. Assessment: 22:34 General: Appears in no apparent distress. comfortable, Behavior is calm, cooperative, al4 anxious, Patient reports noticing blood on her leg during her shower, but none in her underwear prior to shower. Patient reports now having spotting in her underwear since. Patient reports starting to have morning sickness again that restarted this week. . Pain: Complains of pain in right lower quadrant and left lower quadrant Pain radiates to left low back and right low back Quality of pain is described as burning. Neuro: Level of Consciousness is awake, alert, obeys commands, Oriented to person, place, time, situation. Cardiovascular: Capillary refill < 3 seconds Patient's skin is warm and dry. Respiratory: Airway is patent Respiratory effort is unlabored, Respiratory pattern is regular. GI: Reports nausea. Musculoskeletal: Circulation, motion, and sensation intact. 23:18 Reassessment: Patient is alert, oriented x 3, equal unlabored respirations, skin al4 warm/dry/pink. 08/16 00:29 Reassessment: Patient is alert, oriented x 3, equal unlabored respirations, skin al4 warm/dry/pink. 00:51 Obstetrical Assessment: Obstetrical Assessment: General assessment: awake and alert, al4 skin warm and dry, respirations even and unlabored. 02:21 Reassessment: Patient and/or family updated on plan of care and expected duration. Pain al4 level reassessed. Patient is alert, oriented x 3, equal unlabored respirations, skin warm/dry/pink. Vital Signs: 08/15 22:09 BP 127 / 70; Pulse 87; Resp 17 S; Temp 98.6(O); Pulse Ox 99% on R/A; Weight 89.36 kg lg3 (R); Height 5 ft. 8 in. (172.72 cm) (R); Pain 0/10; 22:36 BP 121 / 59; Pulse 80; Resp 18; Temp 98.2; Pulse Ox 100% on R/A; al4 08/16 00:30 BP 105 / 55; Pulse 80; Resp 18 S; Pulse Ox 100% on R/A; al4 01:15 BP 102 / 47; Pulse 71; Resp 18 S; Pulse Ox 99% on R/A; al4 02:00 BP 110 / 59; Pulse 67; Resp 18 S; Pulse Ox 98% on R/A; al4 08/15 22:09 Body Mass Index 29.95 (89.36 kg, 172.72 cm) lg3 Vitals: 00:46 Heart Tones states heart tones were done during ultrasound. Verbal order al4 - RN does not need to do heart tones. . ED Course: 08/15 21:41 Patient arrived in ED. jj6 22:11 Triage completed. lg3 22:11 Arm band placed on right wrist. lg3 22:19 Jose Alejandro Limon MD is Attending Physician. mh7 22:28 Diogo Umaña is Primary Nurse. al4 22:37 Bed in low position. Call light in reach. al4 23:18 Inserted saline lock: 20 gauge in right antecubital area, using aseptic technique. al4 Blood collected. 23:40 US OB Limited In Process Unspecified. EDMS 08/16 00:29 Urine Culture Sent. al4 00:29 Urine Microscopic Only Sent. al4 02:29 No provider procedures requiring assistance completed. IV discontinued, intact, al4 bleeding controlled, No redness/swelling at site. Pressure dressing applied. Administered Medications: 00:44 Drug: KeFLEX (cephalexin) 500 mg Route: PO; al4 01:45 Follow up: Response: No adverse reaction al4 Point of Care Testing: Urine : 08/15 23:18 hCG Reading: Positive; Control Reading: Negative; al4 Outcome: 08/16 02:22 Discharge ordered by . mh7 02:29 Discharged to home ambulatory. al4 02:29 Condition: stable 02:29 Discharge instructions given to patient, Instructed on discharge instructions, follow up and referral plans. medication usage, Demonstrated understanding of instructions, follow-up care, medications, Prescriptions given X 1. 02:33 Patient left the ED. al4 Signatures: Dispatcher [employer] EDMS Radha Cadet RN RN lg3 Jose Alejandro Limon MD MD mh7 May Camacho tw5 Evon Soriano Alexis al4 Corrections: (The following items were deleted from the chart) 08/15 22:14 22:09 Chief complaint: Patient states: vaginal bleeding starting around 2030 in the lg3 shower. pt unaware if currently still bleeding. 18 weeks . lg3 23:19 22:34 Pain: Complains of pain in right lower quadrant and left lower quadrant Pain al4 radiates to left low back and right low back al4 08/16 00:52 00:51 Obstetrical Assessment: tw5 al4
--- NOTE | 2021-08-16 02:23 | EDPHYS ---
Physician Documentation [facility] Name: Alia Ocasio Age: 21 yrs Sex: Female : 2000 Arrival Date: 08/15/2021 Time: 21:41 Bed 28 Private MD: ED Physician Jose Alejandro Limon HPI: 08/15 23:25 This 21 yrs old Female presents to ER via Ambulatory with complaints of Vaginal mh7 Bleeding, + Preg <12wks. 23:25 The patient presents to the emergency department with vaginal bleeding, described as mh7 spotting. The estimated gestational age is 18 weeks. course: care: private OB physician, Leakage of Fluid: none appreciated, Ultrasound: the patient had an ultrasound, which was normal, Risk/complications: no obvious risks or complications are appreciated. Previous pregnancies: the patient has never been . Associated signs and symptoms: Pertinent negatives: abdominal pain, chest pain, diarrhea, dysuria, fever, frequency, nausea, ruptured membranes, seizure, shortness of breath, vaginal discharge, vomiting. 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 - Social history:: Smoking status: Patient denies any tobacco usage or history of. Patient/guardian denies using alcohol, street drugs. ROS: 23:25 Constitutional: Negative for fever, chills, and weight loss, Eyes: Negative for injury, mh7 pain, redness, and discharge, ENT: Negative for injury, pain, and discharge, Neck: Negative for injury, pain, and swelling, Cardiovascular: Negative for chest pain, palpitations, and edema, Respiratory: Negative for shortness of breath, cough, wheezing, and pleuritic chest pain, Abdomen/GI: Negative for abdominal pain, nausea, vomiting, diarrhea, and constipation, Back: Negative for injury and pain, MS/Extremity: Negative for injury and deformity, Skin: Negative for injury, rash, and discoloration, Neuro: Negative for headache, weakness, numbness, tingling, and seizure, Psych: Negative for depression, anxiety, suicide ideation, homicidal ideation, and hallucinations, Allergy/Immunology: Negative for hives, rash, and allergies, Endocrine: Negative for neck swelling, polydipsia, polyuria, polyphagia, and marked weight changes, Hematologic/Lymphatic: Negative for swollen nodes, abnormal bleeding, and unusual bruising. Exam: 23:25 Constitutional: This is a well developed, well nourished patient who is awake, alert, mh7 and in no acute distress. Head/Face: Normocephalic, atraumatic. Eyes: Pupils equal round and reactive to light, extra-ocular motions intact. Lids and lashes normal. Conjunctiva and sclera are non-icteric and not injected. Cornea within normal limits. Periorbital areas with no swelling, redness, or edema. Neck: Trachea midline, no thyromegaly or masses palpated, and no cervical lymphadenopathy. Supple, full range of motion without nuchal rigidity, or vertebral point tenderness. No Meningismus. Chest/axilla: Normal chest wall appearance and motion. Nontender with no deformity. No lesions are appreciated. Cardiovascular: Regular rate and rhythm with a normal S1 and S2. No gallops, murmurs, or rubs. Normal PMI, no JVD. No pulse deficits. Respiratory: Lungs have equal breath sounds bilaterally, clear to auscultation and percussion. No rales, rhonchi or wheezes noted. No increased work of breathing, no retractions or nasal flaring. Abdomen/GI: Soft, non-tender, with normal bowel sounds. No distension or tympany. No guarding or rebound. No evidence of tenderness throughout. Back: No spinal tenderness. No costovertebral tenderness. Full range of motion. Skin: Warm, dry with normal turgor. Normal color with no rashes, no lesions, and no evidence of cellulitis. MS/ Extremity: Pulses equal, no cyanosis. Neurovascular intact. Full, normal range of motion. Neuro: Awake and alert, GCS 15, oriented to person, place, time, and situation. Cranial nerves II-XII grossly intact. Motor strength 5/5 in all extremities. Sensory grossly intact. Cerebellar exam normal. Normal gait. Psych: Awake, alert, with orientation to person, place and time. Behavior, mood, and affect are within normal limits. Vital Signs: 22:09 BP 127 / 70; Pulse 87; Resp 17 S; Temp 98.6(O); Pulse Ox 99% on R/A; Weight 89.36 kg lg3 (R); Height 5 ft. 8 in. (172.72 cm) (R); Pain 0/10; 22:36 BP 121 / 59; Pulse 80; Resp 18; Temp 98.2; Pulse Ox 100% on R/A; al4 08/16 00:30 BP 105 / 55; Pulse 80; Resp 18 S; Pulse Ox 100% on R/A; al4 01:15 BP 102 / 47; Pulse 71; Resp 18 S; Pulse Ox 99% on R/A; al4 02:00 BP 110 / 59; Pulse 67; Resp 18 S; Pulse Ox 98% on R/A; al4 08/15 22:09 Body Mass Index 29.95 (89.36 kg, 172.72 cm) lg3 MDM: 02:20 Differential diagnosis: Rich luke, delivery of infant, threatened Ab, inevitable mh7 Ab, complete Ab, retained Ab, septic Ab, missed Ab, ectopic . Data reviewed: vital signs, nurses notes, lab test result(s), Beta HCG: CBC, electrolytes, urinalysis, bacteruria, radiologic studies, ultrasound. Data interpreted: Pulse oximetry: on room air is 98 %. Interpretation: normal. Counseling: I had a detailed discussion with the patient and/or guardian regarding: the historical points, exam findings, and any diagnostic results supporting the discharge/admit diagnosis, lab results, radiology results, the need for outpatient follow up. Response to treatment: the patient's symptoms have markedly improved after treatment. 02:22 Patient medically screened. [facility] 08/15 22:38 Order name: Abo/rh Typing; Complete Time: 02:15 [facility] 08/15 22:38 Order name: Basic Metabolic Panel; Complete Time: 00:18 [facility] 08/15 22:38 Order name: CBC with Diff; Complete Time: 00:18 [facility] 08/15 22:38 Order name: Quantitative Hcg; Complete Time: 00:18 [facility] 08/15 23:18 Order name: Urine --Ancillary (enter results); Complete Time: 00:18 ds4 08/15 23:18 Order name: Urine Dipstick-Ancillary; Complete Time: 00:18 EDMS 08/15 22:38 Order name: IV Saline Lock; Complete Time: 23:17 7 08/15 22:38 Order name: Labs collected and sent; Complete Time: 23:17 7 08/15 22:38 Order name: NPO; Complete Time: 23:17 7 08/15 22:38 Order name: Urine Dipstick-Ancillary (obtain specimen); Complete Time: 23:18 7 08/15 22:56 Order name: US OB Limited; Complete Time: 02:15 7 08/16 00:18 Order name: Urine Microscopic Only; Complete Time: 02:15 7 08/16 00:18 Order name: Urine Culture [facility] Administered Medications: 00:44 Drug: KeFLEX (cephalexin) 500 mg Route: PO; al4 01:45 Follow up: Response: No adverse reaction al4 Point of Care Testing: Urine : 08/15 23:18 hCG Reading: Positive; Control Reading: Negative; al4 Disposition Summary: 08/16/21 02:22 Discharge Ordered Location: Home [facility] Problem: new [facility] Symptoms: have improved [facility] Condition: Stable [facility] Diagnosis - Threatened [facility] - UTI/ Urinary tract infection, site not specified [facility] - 18 weeks gestation of [facility] Followup: [facility] - With: Private Physician - When: 1 - 2 days - Reason: Worsening of condition, Recheck today's complaints, Continuance of care, Re-evaluation by your physician Discharge Instructions: - Discharge Summary Sheet [facility] - Urinary Tract Infection, Adult, [id number] [facility] - Threatened Miscarriage, [id number] [facility] Forms: - Medication Reconciliation Form [facility] - Thank You Letter [facility] - Antibiotic Education [facility] - Prescription Opioid Use [facility] Prescriptions: - Macrobid 100 mg Oral Capsule - take 1 capsule by ORAL route every 12 hours for 7 days; 14 capsule; Refills: 0, 7 Product Selection Permitted Signatures: Dispatcher [employer] Radha Atkins RN RN lg3 Jose Alejandro Limon MD MD 7 Diogo Umaña ne4
[2021-08-16 02:49] VITALS: TEMP 98.2
[2021-08-16 02:53] VITALS: BP 110/59; O2SAT 98
== END 2021-08-16 02:33 | disposition home or self-care (01) ==
LOC: ER 21:31
DX: O20.0 Threatened abortion (principal); O23.42 Unspecified infection of urinary tract in pregnancy, second trimester; N39.0 Urinary tract infection, site not specified; Z3A.18 18 weeks gestation of pregnancy
CPT/HCPCS: 36415; 76815; 80048; 81003; 81015; 81025; 84702; 85025; 86900; 86901; 87086; 87088; 99284